=== PATIENT | female | born 1970 | race Caucasian/White ===

== ENCOUNTER 2016-10-10 14:02 | Emergency (ER) | payer OTHER ==
[2016-10-10 14:11] VITALS: TEMP 98.5
[2016-10-10] MEDS ORDERED: SODIUM CHLORIDE 0.9% 1,000 ML IV ONE (14:32)
[2016-10-10 14:33] LABS: Glucose,Whole Blood 291 mg/dL (75-99)
--- NOTE | 2016-10-10 14:44 | ED ---
General Adult HPI - General Chief complaint: Recheck/Abnormal Lab/Rx Stated complaint: leg numbness/diabetic Time Seen by Provider: 10/10/16 14:20 Source: patient Mode of arrival: wheelchair Limitations: no limitations - History of Present Illness Initial comments: Patient is a 46-year-old female who presents with a chief complaint of leg swelling, and right medial leg numbness. She states that yesterday when she went to bed she was fine, and today when she woke up her legs were swollen, right greater than left and she has numbness over the anterior medial aspect of her lower right leg. Patient cannot identify any inciting factors. There is nothing aggravating or alleviating. Patient doesn't that her diabetes has been poorly controlled lately. She called her primary care's office today and was instructed to come to the emergency department. Patient denies any trauma to the legs, long car rides, use of estrogens, previously diagnosed DVTs. Onset/Timin -: days(s) Location: right, lower extremity Radiation: non-radiation Quality: burning, other (Tingling) Consistency: constant Improves with: none Worsens with: none Associated Symptoms: denies other symptoms Treatments Prior to Arrival: none - Related Data Home Medications Medication Instructions Recorded Confirmed Insulin Aspart [NovoLOG] 10 unit SQ AC-TID 10/10/16 10/10/16 Insulin Glargine,Hum.rec.anlog 24 unit SQ BID 10/10/16 10/10/16 [Lantus Solostar] Lisinopril [Zestril] 10 mg PO DAILY 10/10/16 10/10/16 Metoprolol Succinate [Toprol XL] 50 mg PO HS 10/10/16 10/10/16 Previous Rx's Medication Instructions Recorded Apixaban [Eliquis] 5 mg PO DAILY #30 tablet 10/10/16 Allergies Allergy/AdvReac Type Severity Reaction Status Date / Time ciprofloxacin [From Cipro] Allergy Rash/Hives Verified 10/10/16 15:04 Iodine and Iodide Containing Allergy Rash/Hives Verified 10/10/16 15:04 Produc morphine Allergy Rash/Hives Verified 10/10/16 15:04 Penicillins Allergy Rash/Hives Verified 10/10/16 15:04 Review of Systems ROS Statement: Those systems with pertinent positive or pertinent negative responses have been documented in the HPI. Patient denies headache, visual changes, lightheadedness, dizziness, shortness of breath, chest pain, vomiting, dysuria, constipation, diarrhea. She admits to mild nausea, and numbness of the right leg. ROS Other: All systems not noted in ROS Statement are negative. Past Medical History Past Medical History: Diabetes Mellitus Additional Past Medical History / Comment(s): OCD History of Any Multi-Drug Resistant Organisms: None Reported Past Surgical History: Hysterectomy Past Psychological History: Anxiety Smoking Status: Current every day smoker Past Alcohol Use History: Occasional Past Drug Use History: None Reported General Exam Limitations: no limitations General appearance: alert, in no apparent distress Head exam: Present: atraumatic, normocephalic Eye exam: Present: normal appearance, PERRL ENT exam: Present: normal oropharynx Neck exam: Present: normal inspection Respiratory exam: Present: normal lung sounds bilaterally Cardiovascular Exam: Present: regular rate, normal rhythm GI/Abdominal exam: Present: soft Extremities exam: Present: normal inspection, calf tenderness (Right), other ( Examination of the lower extremities shows that the right leg is mildly more swollen than the left however there is no overt edema. Legs are nonpitting. Patient describes decreased sensation over the anterior medial aspect of her right leg. Motor, sensation, and 2 point discrimination is intact) Back exam: Present: normal inspection Neurological exam: Present: alert, oriented X3 Psychiatric exam: Present: normal affect, normal mood Skin exam: Present: warm, dry, intact Course Vital Signs 10/10/16 14:06 Temperature 98.5 F Pulse Rate 103 H Respiratory 17 Rate Blood Pressure 146/97 O2 Sat by Pulse 98 Oximetry Medical Decision Making - Medical Decision Making Patient presents with a chief complaint of lower extremity edema, decreased sensation of the right leg. She was instructed by her primary care's office to come to the emergency department to rule out DVT. Patient states that her blood sugar has been high recently as she has not been checking it often. Patient does have a history of neuropathy, she takes gabapentin 3 times a day. Blood sugar is 291, patient appears to be in no distress. We'll send patient for lower extremity ultrasound to rule out DVT. We'll check basic labs and a urine. 3:58 PM Ultrasound of the right lower extremity reveals a positive finding of an acute DVT in the right proximal calf vein. Patient will be started on anticoagulation here in the emergency department. Currently I have a page out to the patient's primary care physician to arrange follow-up, and plan for treatment. 4:21 PM I spoke with Dr. Fairbanks who states that the patient is safe for initiating Eiquis. The patient was started on 5 mg daily. She'll be given her first dose in the emergency department. I arranged that the patient will follow-up tomorrow at 2:15 PM at her primary care office. Patient remained stable in the emergency department. Vital signs are within normal limits, patient has nonlabored breathing. She understands, and is agreeable with care plan. Patient is safe for discharge. - Lab Data Result diagrams: 10/10/16 14:52 10/10/16 14:52 Lab Results 10/10/16 10/10/16 10/10/16 Range/Units 14:28 14:52 14:52 WBC 10.9 H (3.8-10.6) k/uL RBC 4.95 (3.80-5.40) m/uL Hgb 14.8 (11.4-16.0) gm/dL Hct 45.3 (34.0-46.0) % MCV 91.4 (80.0-100.0) fL MCH 29.9 (25.0-35.0) pg MCHC 32.7 (31.0-37.0) g/dL RDW 13.9 (11.5-15.5) % Plt Count 281 (150-450) k/uL Neutrophils % 60 % Lymphocytes % 33 % Monocytes % 3 % Eosinophils % 2 % Basophils % 1 % Neutrophils # 6.5 (1.3-7.7) k/uL Lymphocytes # 3.6 (1.0-4.8) k/uL Monocytes # 0.4 (0-1.0) k/uL Eosinophils # 0.2 (0-0.7) k/uL Basophils # 0.1 (0-0.2) k/uL Sodium 134 L (137-145) mmol/L Potassium 3.9 (3.5-5.1) mmol/L Chloride 101 (98-107) mmol/L Carbon Dioxide 26 (22-30) mmol/L Anion Gap 7 mmol/L BUN 12 (7-17) mg/dL Creatinine 0.57 (0.52-1.04) mg/dL Est GFR (MDRD) Af Amer >60 (>60 ml/min/1.73 sqM) Est GFR (MDRD) Non-Af >60 (>60 ml/min/1.73 sqM) Glucose 305 H (74-99) mg/dL POC Glucose (mg/dL) 291 H (75-99) mg/dL POC Glu Oil [employer]er Repairer ID [place] [employer] Calcium 9.2 (8.4-10.2) mg/dL Urine Color Urine Appearance (Clear) Urine pH (5.0-8.0) Ur Specific [place] (1.001-1.035) Urine Protein (Negative) Urine Glucose (UA) (Negative) Urine Ketones (Negative) Urine Blood (Negative) Urine Nitrite (Negative) Urine Bilirubin (Negative) Urine Urobilinogen (<2.0) mg/dL Ur Leukocyte Esterase (Negative) Urine RBC (0-5) /hpf Urine WBC (0-5) /hpf Ur Squamous Epith Cells (0-4) /hpf Urine Bacteria (None) /hpf 10/10/16 Range/Units 14:53 WBC (3.8-10.6) k/uL RBC (3.80-5.40) m/uL Hgb (11.4-16.0) gm/dL Hct (34.0-46.0) % MCV (80.0-100.0) fL MCH (25.0-35.0) pg MCHC (31.0-37.0) g/dL RDW (11.5-15.5) % Plt Count (150-450) k/uL Neutrophils % % Lymphocytes % % Monocytes % % Eosinophils % % Basophils % % Neutrophils # (1.3-7.7) k/uL Lymphocytes # (1.0-4.8) k/uL Monocytes # (0-1.0) k/uL Eosinophils # (0-0.7) k/uL Basophils # (0-0.2) k/uL Sodium (137-145) mmol/L Potassium (3.5-5.1) mmol/L Chloride (98-107) mmol/L Carbon Dioxide (22-30) mmol/L Anion Gap mmol/L BUN (7-17) mg/dL Creatinine (0.52-1.04) mg/dL Est GFR (MDRD) Af Amer (>60 ml/min/1.73 sqM) Est GFR (MDRD) Non-Af (>60 ml/min/1.73 sqM) Glucose (74-99) mg/dL POC Glucose (mg/dL) (75-99) mg/dL POC Glu Oil Burner Repairer ID Calcium (8.4-10.2) mg/dL Urine Color Light Yellow Urine Appearance Clear (Clear) Urine pH 5.5 (5.0-8.0) Ur Specific [place] 1.001 (1.001-1.035) Urine Protein Negative (Negative) Urine Glucose (UA) 3+ H (Negative) Urine Ketones Negative (Negative) Urine Blood Negative (Negative) Urine Nitrite Negative (Negative) Urine Bilirubin Negative (Negative) Urine Urobilinogen <2.0 (<2.0) mg/dL Ur Leukocyte Esterase Trace H (Negative) Urine RBC 1 (0-5) /hpf Urine WBC 4 (0-5) /hpf Ur Squamous Epith Cells 7 H (0-4) /hpf Urine Bacteria Rare H (None) /hpf Disposition Clinical Impression: Acute DVT (deep venous thrombosis) Disposition: HOME SELF-CARE Condition: Good Instructions: Deep Venous Thrombosis (ED) Additional Instructions: Follow-up with Dr. Fairbanks tomorrow at 2:15 PM Prescriptions: Apixaban [Eliquis] 5 mg PO DAILY #30 tablet Referrals: Brian De Souza DO [Primary Care Provider] - 1-2 days
[2016-10-10 15:09] LABS: Basophils # (A) 0.1 k/uL (0-0.2); Basophils % (A) 1 %; CH 30.6; CHCM 33.6; Eosinophils # (A) 0.2 k/uL (0-0.7); Eosinophils % (A) 2 %; HCT 45.3 % (34.0-46.0); HDW 2.24; HGB 14.8 gm/dL (11.4-16.0); Luc # (Auto) 0.14; Luc % (Auto) 1; Lymphocytes # (A) 3.6 k/uL (1.0-4.8); Lymphocytes % (A) 33 %; MCH 29.9 pg (25.0-35.0); MCHC 32.7 g/dL (31.0-37.0); MCV 91.4 fL (80.0-100.0); Mean Platelet Volume 7.7; Monocytes # (A) 0.4 k/uL (0-1.0); Monocytes % (A) 3 %; Neutrophils # (A) 6.5 k/uL (1.3-7.7); Neutrophils % (A) 60 %; RBC 4.95 m/uL (3.80-5.40); RDW 13.9 % (11.5-15.5); WBC 10.9 k/uL (3.8-10.6); WBC (Perox) 10.72
[2016-10-10 15:17] LABS: Anion Gap 7 mmol/L; Blood Urea Nitrogen 12 mg/dL (7-17); Calcium 9.2 mg/dL (8.4-10.2); Carbon Dioxide 26 mmol/L (22-30); Chloride 101 mmol/L (98-107); Glucose 305 mg/dL (74-99); Non-African American GFR(MDRD) >60 (>60 ml/min/1.73 sqM); Potassium 3.9 mmol/L (3.5-5.1); Sodium 134 mmol/L (137-145)
[2016-10-10 15:30] LABS: Appearance,Urine Clear (Clear); Bacteria,Urine Rare /hpf; Bilirubin,Urine Negative (Negative); Glucose,Urine (UA) 3+ (Negative); Ketones,Urine Negative (Negative); Leukocyte Esterase,Urine Trace (Negative); Nitrite,Urine Negative (Negative); PH, Urine 5.5 (5.0-8.0); Particle Count 1196; Protein,Urine Negative (Negative); RBC,Urine 1 /hpf (0-5); Specific Gravity,Urine 1.001 (1.001-1.035); Squamous Epithelial Cell,Urine 7 /hpf (0-4); UA Billing (MACRO vs. MICRO) MICRO; Urobilinogen,Urine <2.0 mg/dL (<2.0); WBC,Urine 4 /hpf (0-5)
--- NOTE | 2016-10-10 15:39 | US ---
EXAMINATION TYPE: US venous doppler duplex LE RT DATE OF EXAM: 10/10/2016 2:33 PM COMPARISON: NONE CLINICAL HISTORY: Pain. Edema right leg, numbness right lower leg SIDE PERFORMED: Right TECHNIQUE: The lower extremity deep venous system is examined utilizing real time linear array sonog killian with graded compression, doppler sonography and color-flow sonography. VESSELS IMAGED: External Iliac Vein (EIV) Common Femoral Vein Deep Femoral Vein Greater Saphenous Vein * Femoral Vein Popliteal Vein Small Saphenous Vein * Proximal Calf Veins (* superficial vessels) Right Leg: ++Positive for DVT right proximal calf vein IMPRESSION: 1. Findings are compatible with acute DVT right proximal calf veins.
[2016-10-10 16:38] VITALS: BP 148/93; PULSE 88; RESP 18
[2016-10-10] MEDS ORDERED: APIXABAN 5 MG TAB PO ONE (17:15)
== END 2016-10-10 18:03 | disposition home or self-care (01) ==
LOC: EC 14:02
DX: I82.401 Acute embolism and thrombosis of unspecified deep veins of right lower extremity (principal); E11.9 Type 2 diabetes mellitus without complications; F42.9 Obsessive-compulsive disorder, unspecified; F17.200 Nicotine dependence, unspecified, uncomplicated; Z79.4 Long term (current) use of insulin; Z79.899 Other long term (current) drug therapy; Z88.0 Allergy status to penicillin; Z88.1 Allergy status to other antibiotic agents; Z88.5 Allergy status to narcotic agent; Z88.8 Allergy status to other drugs, medicaments and biological substances
CPT/HCPCS: 36415; 80048; 81001; 85025; 96360; 96361; 99284

== ENCOUNTER 2016-10-31 15:28 | Emergency (ER) | payer OTHER ==
[2016-10-31] MEDS ORDERED: SODIUM CHLORIDE 0.9% 1,000 ML IV STA ×2 (16:02)
[2016-10-31] MEDS ORDERED: ONDANSETRON 4 MG/2 ML VIAL IVP STA (16:02)
--- NOTE | 2016-10-31 16:10 | ED ---
General Adult HPI - General Chief complaint: Nausea/Vomiting/Diarrhea Stated complaint: Hyperglycemia Time Seen by Provider: 10/31/16 15:46 Source: patient, RN notes reviewed, old records reviewed Mode of arrival: ambulatory Limitations: no limitations - History of Present Illness Initial comments: This is a 46-year-old female here for evaluation. Patient states coming in with a. Blood sugars were out of control. Nausea and mild vomiting weakness and dehydration. Sugars have been running elevated for about a day and a half. Patient denies any fevers or chest pain or shortness of breath no abdominal pain. Patient has no other complaints source travel history no sick contacts - Related Data Home Medications Medication Instructions Recorded Confirmed Insulin Aspart [NovoLOG] 10 unit SQ TID-W/MEALS 10/10/16 10/31/16 Insulin Glargine,Hum.rec.anlog 20 unit SQ BID 10/10/16 10/31/16 [Lantus Solostar] Metoprolol Succinate [Toprol XL] 50 mg PO HS 10/10/16 10/31/16 Apixaban [Eliquis] 5 mg PO QAM 10/31/16 10/31/16 Ibuprofen [Motrin] 400 mg PO TID PRN 10/31/16 10/31/16 Losartan [Cozaar] 50 mg PO QAM 10/31/16 10/31/16 Allergies Allergy/AdvReac Type Severity Reaction Status Date / Time ciprofloxacin [From Cipro] Allergy Rash/Hives Verified 10/31/16 15:43 Iodine and Iodide Containing Allergy Rash/Hives Verified 10/31/16 15:43 Produc morphine Allergy Rash/Hives Verified 10/31/16 15:43 Penicillins Allergy Rash/Hives Verified 10/31/16 15:43 Review of Systems ROS Statement: Those systems with pertinent positive or pertinent negative responses have been documented in the HPI. ROS Other: All systems not noted in ROS Statement are negative. Past Medical History Past Medical History: Diabetes Mellitus Additional Past Medical History / Comment(s): OCD History of Any Multi-Drug Resistant Organisms: None Reported Past Surgical History: Hysterectomy Past Psychological History: Anxiety Smoking Status: Current every day smoker Past Alcohol Use History: Occasional Past Drug Use History: None Reported General Exam Limitations: no limitations General appearance: alert, in no apparent distress Head exam: Present: atraumatic, normocephalic, normal inspection Eye exam: Present: normal appearance, PERRL, EOMI. Absent: scleral icterus, conjunctival injection, periorbital swelling ENT exam: Present: normal exam, mucous membranes moist Neck exam: Present: normal inspection. Absent: tenderness, meningismus, lymphadenopathy Respiratory exam: Present: normal lung sounds bilaterally. Absent: respiratory distress, wheezes, rales, rhonchi, stridor Cardiovascular Exam: Present: regular rate, normal rhythm, normal heart sounds. Absent: systolic murmur, diastolic murmur, rubs, gallop, clicks GI/Abdominal exam: Present: soft, normal bowel sounds. Absent: distended, tenderness, guarding, rebound, rigid Extremities exam: Present: normal inspection, full ROM, normal capillary refill. Absent: tenderness, pedal edema, joint swelling, calf tenderness Back exam: Present: normal inspection Neurological exam: Present: alert, oriented X3, CN II-XII intact Psychiatric exam: Present: normal affect, normal mood Skin exam: Present: warm, dry, intact, normal color. Absent: rash Course Vital Signs 10/31/16 15:41 Temperature 98.6 F Pulse Rate 87 Respiratory 20 Rate Blood Pressure 143/93 O2 Sat by Pulse 98 Oximetry - Reevaluation(s) Reevaluation #1: 10/31/16 17:16 Patient feels better with simple control and hydration at this time EKG Findings - EKG Comments: EKG Findings:: EKG shows normal sinus rhythm rate of 72, [place] 126, QRS 84, QTc 413 Medical Decision Making - Medical Decision Making 46 female here for evaluation. Patient is today for evaluation regarding weakness dizziness not feeling well. Patient's blood sugars wanted control at this time without is normal EKG negative patient will be discharged home - Lab Data Result diagrams: 10/31/16 16:10 10/31/16 16:10 Lab Results 10/31/16 10/31/16 10/31/16 Range/Units 16:05 16:10 16:10 WBC (3.8-10.6) k/uL RBC (3.80-5.40) m/uL Hgb (11.4-16.0) gm/dL Hct (34.0-46.0) % MCV (80.0-100.0) fL MCH (25.0-35.0) pg MCHC (31.0-37.0) g/dL RDW (11.5-15.5) % Plt Count (150-450) k/uL Neutrophils % % Lymphocytes % % Monocytes % % Eosinophils % % Basophils % % Neutrophils # (1.3-7.7) k/uL Lymphocytes # (1.0-4.8) k/uL Monocytes # (0-1.0) k/uL Eosinophils # (0-0.7) k/uL Basophils # (0-0.2) k/uL VBG pH 7.43 H (7.31-7.41) VBG pCO2 37 (37-51) mmHg VBG HCO3 24 (24-28) mmol/L Sodium 133 L (137-145) mmol/L Potassium 4.4 (3.5-5.1) mmol/L Chloride 100 (98-107) mmol/L Carbon Dioxide 23 (22-30) mmol/L Anion Gap 10 mmol/L BUN 16 (7-17) mg/dL Creatinine 0.60 (0.52-1.04) mg/dL Est GFR (MDRD) Af Amer >60 (>60 ml/min/1.73 sqM) Est GFR (MDRD) Non-Af >60 (>60 ml/min/1.73 sqM) Glucose 412 H (74-99) mg/dL POC Glucose (mg/dL) 377 H (75-99) mg/dL POC Glu Gambling Monitor ID [place] Calcium 9.5 (8.4-10.2) mg/dL Phosphorus 4.1 (2.5-4.5) mg/dL Magnesium 1.6 (1.6-2.3) mg/dL Total Bilirubin 0.3 (0.2-1.3) mg/dL AST 16 (14-36) U/L ALT 27 (9-52) U/L Alkaline Phosphatase 92 (38-126) U/L Total Protein 7.0 (6.3-8.2) g/dL Albumin 3.9 (3.5-5.0) g/dL Urine Color Urine Appearance (Clear) Urine pH (5.0-8.0) Ur Specific [place] (1.001-1.035) Urine Protein (Negative) Urine Glucose (UA) (Negative) Urine Ketones (Negative) Urine Blood (Negative) Urine Nitrite (Negative) Urine Bilirubin (Negative) Urine Urobilinogen (<2.0) mg/dL Ur Leukocyte Esterase (Negative) Urine RBC (0-5) /hpf Urine WBC (0-5) /hpf Ur Squamous Epith Cells (0-4) /hpf Urine Bacteria (None) /hpf 10/31/16 10/31/16 Range/Units 16:10 16:10 WBC 13.0 H (3.8-10.6) k/uL RBC 5.29 (3.80-5.40) m/uL Hgb 16.0 (11.4-16.0) gm/dL Hct 47.6 H (34.0-46.0) % MCV 90.1 (80.0-100.0) fL MCH 30.2 (25.0-35.0) pg MCHC 33.6 (31.0-37.0) g/dL RDW 13.0 (11.5-15.5) % Plt Count 226 (150-450) k/uL Neutrophils % 63 % Lymphocytes % 30 % Monocytes % 3 % Eosinophils % 2 % Basophils % 1 % Neutrophils # 8.2 H (1.3-7.7) k/uL Lymphocytes # 3.9 (1.0-4.8) k/uL Monocytes # 0.4 (0-1.0) k/uL Eosinophils # 0.3 (0-0.7) k/uL Basophils # 0.1 (0-0.2) k/uL VBG pH (7.31-7.41) VBG pCO2 (37-51) mmHg VBG HCO3 (24-28) mmol/L Sodium (137-145) mmol/L Potassium (3.5-5.1) mmol/L Chloride (98-107) mmol/L Carbon Dioxide (22-30) mmol/L Anion Gap mmol/L BUN (7-17) mg/dL Creatinine (0.52-1.04) mg/dL Est GFR (MDRD) Af Amer (>60 ml/min/1.73 sqM) Est GFR (MDRD) Non-Af (>60 ml/min/1.73 sqM) Glucose (74-99) mg/dL POC Glucose (mg/dL) (75-99) mg/dL POC Glu Gambling Monitor ID Calcium (8.4-10.2) mg/dL Phosphorus (2.5-4.5) mg/dL Magnesium (1.6-2.3) mg/dL Total Bilirubin (0.2-1.3) mg/dL AST (14-36) U/L ALT (9-52) U/L Alkaline Phosphatase (38-126) U/L Total Protein (6.3-8.2) g/dL Albumin (3.5-5.0) g/dL Urine Color Light Yellow Urine Appearance Clear (Clear) Urine pH 5.5 (5.0-8.0) Ur Specific [place] 1.020 (1.001-1.035) Urine Protein Negative (Negative) Urine Glucose (UA) 4+ H (Negative) Urine Ketones 1+ H (Negative) Urine Blood Trace H (Negative) Urine Nitrite Negative (Negative) Urine Bilirubin Negative (Negative) Urine Urobilinogen <2.0 (<2.0) mg/dL Ur Leukocyte Esterase Negative (Negative) Urine RBC 1 (0-5) /hpf Urine WBC 13 H (0-5) /hpf Ur Squamous Epith Cells 3 (0-4) /hpf Urine Bacteria Occasional H (None) /hpf Disposition Clinical Impression: Dehydration, Nausea and vomiting Disposition: HOME SELF-CARE Condition: Good Instructions: Acute Nausea and Vomiting (ED) Referrals: Brian De Souza DO [Primary Care Provider] - 1-2 days
[2016-10-31 16:11] LABS: Glucose,Whole Blood 377 mg/dL (75-99)
[2016-10-31 16:31] LABS: Basophils # (A) 0.1 k/uL (0-0.2); Basophils % (A) 1 %; CH 29.7; CHCM 33.1; Eosinophils # (A) 0.3 k/uL (0-0.7); Eosinophils % (A) 2 %; HCT 47.6 % (34.0-46.0); HDW 2.23; Luc % (Auto) 2; Lymphocytes # (A) 3.9 k/uL (1.0-4.8); Lymphocytes % (A) 30 %; MCH 30.2 pg (25.0-35.0); MCHC 33.6 g/dL (31.0-37.0); MCV 90.1 fL (80.0-100.0); Mean Platelet Volume 7.2; Monocytes # (A) 0.4 k/uL (0-1.0); Monocytes % (A) 3 %; Neutrophils # (A) 8.2 k/uL (1.3-7.7); Neutrophils % (A) 63 %; RBC 5.29 m/uL (3.80-5.40); WBC (Perox) 12.25
[2016-10-31 16:36] LABS: Appearance,Urine Clear (Clear); Bacteria,Urine Occasional /hpf; Bilirubin,Urine Negative (Negative); Glucose,Urine (UA) 4+ (Negative); Ketones,Urine 1+ (Negative); Leukocyte Esterase,Urine Negative (Negative); Nitrite,Urine Negative (Negative); PH, Urine 5.5 (5.0-8.0); Particle Count 917; Protein,Urine Negative (Negative); RBC,Urine 1 /hpf (0-5); Squamous Epithelial Cell,Urine 3 /hpf (0-4); UA Billing (MACRO vs. MICRO) MICRO; Urobilinogen,Urine <2.0 mg/dL (<2.0); WBC,Urine 13 /hpf (0-5)
[2016-10-31 16:39] LABS: ALT 27 U/L (9-52); AST 16 U/L (14-36); Alkaline Phosphatase 92 U/L (38-126); Anion Gap 10 mmol/L; Blood Urea Nitrogen 16 mg/dL (7-17); Calcium 9.5 mg/dL (8.4-10.2); Carbon Dioxide 23 mmol/L (22-30); Chloride 100 mmol/L (98-107); Glucose 412 mg/dL (74-99); Non-African American GFR(MDRD) >60 (>60 ml/min/1.73 sqM); Phosphorous 4.1 mg/dL (2.5-4.5); Potassium 4.4 mmol/L (3.5-5.1); Sodium 133 mmol/L (137-145); Total Bilirubin 0.3 mg/dL (0.2-1.3)
[2016-10-31 16:49] LABS: Magnesium 1.6 mg/dL (1.6-2.3)
[2016-10-31 16:54] LABS: VBG PH 7.43 (7.31-7.41)
[2016-10-31 17:31] LABS: Hemoglobin A1C 11.7 % (4.2-6.1)
[2016-10-31 17:37] VITALS: BP 113/57; PULSE 77; RESP 16; TEMP 97.3
[2016-10-31 17:37] LABS: Glucose,Whole Blood 344 mg/dL (75-99)
== END 2016-10-31 17:37 | disposition home or self-care (01) ==
LOC: EC 15:28
DX: E86.0 Dehydration (principal); R11.2 Nausea with vomiting, unspecified; E11.65 Type 2 diabetes mellitus with hyperglycemia; F17.200 Nicotine dependence, unspecified, uncomplicated; Z79.4 Long term (current) use of insulin; Z79.01 Long term (current) use of anticoagulants; Z79.899 Other long term (current) drug therapy; Z88.0 Allergy status to penicillin; Z88.1 Allergy status to other antibiotic agents; Z88.5 Allergy status to narcotic agent; Z91.041 Radiographic dye allergy status
CPT/HCPCS: 36415; 93005; 80053; 83036; 82803; 82009; 83735; 84100; 85025; 81001; 87086; 87077; 87186; 99285; 96374; 96361; J2405

== ENCOUNTER 2021-12-26 03:28 | Emergency (ER) | payer OTHER ==
[2021-12-26 03:44] VITALS: BP 141/86; PULSE 95; RESP 18; TEMP 98
[2021-12-26] MEDS ORDERED: SODIUM CHLORIDE 0.9% 1,000 ML IV STA (04:53)
[2021-12-26 05:50] LABS: HCT 42.3 % (34.0-46.0); HGB 13.6 gm/dL (11.4-16.0); MCH 29.7 pg (25.0-35.0); MCHC 32.2 g/dL (31.0-37.0); MCV 92.1 fL (80.0-100.0); Mean Platelet Volume 8.6; Platelet Count 313 k/uL (150-450); RDW 12.8 % (11.5-15.5); WBC 12.6 k/uL (3.8-10.6)
--- NOTE | 2021-12-26 05:53 | ED ---
General Adult HPI - General Chief complaint: Recheck/Abnormal Lab/Rx Stated complaint: Low Sodium Time Seen by Provider: 12/26/21 04:35 Source: patient Mode of arrival: ambulatory Limitations: no limitations - History of Present Illness Initial comments: 51-year-old female with past history of diabetes who presents to emergency department for fevers and uncontrolled blood sugars. Patient reports that she has been sick for the past 10 days with body aches, fevers, fatigue. This has caused her blood sugars she become uncontrolled. She followed up with her primary care doctor and had Covid and influenza testing performed which was negative. Her primary care completed laboratory studies. Her glucose was in the 500s and her sodium was reported as low and therefore they recommended that she come to the emergency department for treatment. Patient states that she received this call yesterday however was unable to come into the emergency department until today. She continues to take her medications as directed. Denies any missed doses of insulin. No chest pain, shortness of breath. No abdominal pain. No changes in her bowel or bladder habits. Reports that her last fever was on Friday. No other alleviating, precipitating monitoring factors - Related Data Home Medications Medication Instructions Recorded Confirmed INSULIN ASPART (NovoLOG) [NovoLOG] 10 unit SQ TID-W/MEALS 10/10/16 10/31/16 Insulin Glargine,Hum.rec.anlog 20 unit SQ BID 10/10/16 10/31/16 [Lantus Solostar] Metoprolol Succinate [Toprol XL] 50 mg PO HS 10/10/16 10/31/16 Apixaban [Eliquis] 5 mg PO QAM 10/31/16 10/31/16 Ibuprofen [Motrin] 400 mg PO TID PRN 10/31/16 10/31/16 Losartan [Cozaar] 50 mg PO QAM 10/31/16 10/31/16 Previous Rx's Medication Instructions Recorded Ondansetron [Zofran] 4 mg PO Q8HR PRN #30 tab 10/31/16 Cephalexin [Keflex] 500 mg PO BID 1 Days #14 cap 12/26/21 Allergies Allergy/AdvReac Type Severity Reaction Status Date / Time ciprofloxacin [From Cipro] Allergy Rash/Hives Verified 12/26/21 03:32 Iodine and Iodide Containing Allergy Rash/Hives Verified 12/26/21 03:32 Produc morphine Allergy Rash/Hives Verified 12/26/21 03:32 Penicillins Allergy Rash/Hives Verified 12/26/21 03:32 Review of Systems ROS Statement: Those systems with pertinent positive or pertinent negative responses have been documented in the HPI. ROS Other: All systems not noted in ROS Statement are negative. Past Medical History Past Medical History: Diabetes Mellitus Additional Past Medical History / Comment(s): OCD, hyponateremia 2020 History of Any Multi-Drug Resistant Organisms: None Reported Past Surgical History: Hysterectomy, Tonsillectomy Additional Past Surgical History / Comment(s): B salivary gland removal, R knee Past Psychological History: ADD/ADHD Smoking Status: Former smoker Past Alcohol Use History: Occasional Past Drug Use History: None Reported General Exam Limitations: no limitations General appearance: alert, in no apparent distress Head exam: Present: atraumatic, normocephalic, normal inspection Eye exam: Present: normal appearance, PERRL, EOMI. Absent: scleral icterus, conjunctival injection, periorbital swelling ENT exam: Present: normal exam, mucous membranes moist Neck exam: Present: normal inspection. Absent: tenderness, meningismus, lymphadenopathy Respiratory exam: Present: normal lung sounds bilaterally. Absent: respiratory distress, wheezes, rales, rhonchi, stridor Cardiovascular Exam: Present: regular rate, normal rhythm, normal heart sounds. Absent: systolic murmur, diastolic murmur, rubs, gallop, clicks GI/Abdominal exam: Present: soft, normal bowel sounds. Absent: distended, tenderness, guarding, rebound, rigid Extremities exam: Present: normal inspection, full ROM, normal capillary refill. Absent: tenderness, pedal edema, joint swelling, calf tenderness Back exam: Present: normal inspection Neurological exam: Present: alert, oriented X3, CN II-XII intact Psychiatric exam: Present: normal affect, normal mood Skin exam: Present: warm, dry, intact, normal color. Absent: rash Course Vital Signs 12/26/21 03:33 Temperature 98 F Pulse Rate 95 Respiratory 18 Rate Blood Pressure 141/86 O2 Sat by Pulse 100 Oximetry EKG Findings - EKG Comments: EKG Findings:: EKG demonstrates sinus rhythm with a rate of 70. TX interval 148. QRS 98. QTC of 420. Some J-point elevation in all leads. No reciprocal changes Medical Decision Making - Medical Decision Making Upon arrival patient was placed into room 2. History and physical exam was performed. IV access was established. Laboratory studies were conducted. Glucose is 319. Urinalysis demonstrates many bacteria. She given a dose of Rocephin. Glucose rechecked after a liter bolus and is down to 217. Patient will be discharged home on antibiotics. Instructed to follow up with primary care to have reevaluation of urinalysis after antibiotics are finished. Continue to watch her sugars closely and just oozing her sliding scale. Return for any new or worsening symptoms. Patient was agreeable to this plan and discharged home in stable condition - Lab Data Result diagrams: 12/26/21 05:10 12/26/21 05:10 Lab Results 12/26/21 12/26/21 12/26/21 Range/Units 05:10 05:10 05:10 WBC 12.6 H (3.8-10.6) k/uL RBC 4.60 (3.80-5.40) m/uL Hgb 13.6 (11.4-16.0) gm/dL Hct 42.3 (34.0-46.0) % MCV 92.1 (80.0-100.0) fL MCH 29.7 (25.0-35.0) pg MCHC 32.2 (31.0-37.0) g/dL RDW 12.8 (11.5-15.5) % Plt Count 313 (150-450) k/uL MPV 8.6 Neutrophils % (Manual) 50 % Band Neuts % (Manual) 9 % Lymphocytes % (Manual) 34 % Monocytes % (Manual) 5 % Eosinophils % (Manual) 2 % Neutrophils # (Manual) 7.40 (1.3-7.7) k/uL Lymphocytes # (Manual) 4.28 (1.0-4.8) k/uL Monocytes # (Manual) 0.63 (0-1.0) k/uL Eosinophils # (Manual) 0.25 (0-0.7) k/uL Nucleated RBCs 0 (0-0) /100 WBC Manual Slide Review Performed Large Platelets Present PT 10.6 (9.0-12.0) sec INR 1.0 (<1.2) APTT 22.3 (22.0-30.0) sec Sodium 131 L (137-145) mmol/L Potassium 4.3 (3.5-5.1) mmol/L Chloride 94 L (98-107) mmol/L Carbon Dioxide 24 (22-30) mmol/L Anion Gap 13 mmol/L BUN 28 H (7-17) mg/dL Creatinine 0.78 (0.52-1.04) mg/dL Est GFR (CKD-EPI)AfAm >90 (>60 ml/min/1.73 sqM) Est GFR (CKD-EPI)NonAf 89 (>60 ml/min/1.73 sqM) Glucose 319 H (74-99) mg/dL POC Glucose (mg/dL) (70-110) mg/dL POC Glu Records Tech ID Plasma Lactic Acid Wes (0.7-2.0) mmol/L Calcium 8.8 (8.4-10.2) mg/dL Magnesium 1.9 (1.6-2.3) mg/dL Total Bilirubin 0.5 (0.2-1.3) mg/dL AST 45 H (14-36) U/L ALT 62 H (4-34) U/L Alkaline Phosphatase 193 H (38-126) U/L Troponin I (0.000-0.034) ng/mL Total Protein 6.5 (6.3-8.2) g/dL Albumin 3.3 L (3.5-5.0) g/dL TSH 0.574 (0.465-4.680) mIU/L Urine Color Urine Appearance (Clear) Urine pH (5.0-8.0) Ur Specific Moro (1.001-1.035) Urine Protein (Negative) Urine Glucose (UA) (Negative) Urine Ketones (Negative) Urine Blood (Negative) Urine Nitrite (Negative) Urine Bilirubin (Negative) Urine Urobilinogen (<2.0) mg/dL Ur Leukocyte Esterase (Negative) Urine RBC (0-5) /hpf Urine WBC (0-5) /hpf Urine WBC Clumps (None) /hpf Ur Squamous Epith Cells (0-4) /hpf Urine Bacteria (None) /hpf Hyaline Casts (0-2) /lpf Urine Mucus (None) /hpf Acetone, Qual Negative (Negative) 12/26/21 12/26/21 12/26/21 Range/Units 05:10 05:10 05:52 WBC (3.8-10.6) k/uL RBC (3.80-5.40) m/uL Hgb (11.4-16.0) gm/dL Hct (34.0-46.0) % MCV (80.0-100.0) fL MCH (25.0-35.0) pg MCHC (31.0-37.0) g/dL RDW (11.5-15.5) % Plt Count (150-450) k/uL MPV Neutrophils % (Manual) % Band Neuts % (Manual) % Lymphocytes % (Manual) % Monocytes % (Manual) % Eosinophils % (Manual) % Neutrophils # (Manual) (1.3-7.7) k/uL Lymphocytes # (Manual) (1.0-4.8) k/uL Monocytes # (Manual) (0-1.0) k/uL Eosinophils # (Manual) (0-0.7) k/uL Nucleated RBCs (0-0) /100 WBC Manual Slide Review Large Platelets PT (9.0-12.0) sec INR (<1.2) APTT (22.0-30.0) sec Sodium (137-145) mmol/L Potassium (3.5-5.1) mmol/L Chloride (98-107) mmol/L Carbon Dioxide (22-30) mmol/L Anion Gap mmol/L BUN (7-17) mg/dL Creatinine (0.52-1.04) mg/dL Est GFR (CKD-EPI)AfAm (>60 ml/min/1.73 sqM) Est GFR (CKD-EPI)NonAf (>60 ml/min/1.73 sqM) Glucose (74-99) mg/dL POC Glucose (mg/dL) (70-110) mg/dL POC Glu Records Tech ID Plasma Lactic Acid Wes 1.6 (0.7-2.0) mmol/L Calcium (8.4-10.2) mg/dL Magnesium (1.6-2.3) mg/dL Total Bilirubin (0.2-1.3) mg/dL AST (14-36) U/L ALT (4-34) U/L Alkaline Phosphatase (38-126) U/L Troponin I <0.012 (0.000-0.034) ng/mL Total Protein (6.3-8.2) g/dL Albumin (3.5-5.0) g/dL TSH (0.465-4.680) mIU/L Urine Color Yellow Urine Appearance Cloudy H (Clear) Urine pH 5.5 (5.0-8.0) Ur Specific Moro 1.020 (1.001-1.035) Urine Protein 1+ H (Negative) Urine Glucose (UA) 4+ H (Negative) Urine Ketones Negative (Negative) Urine Blood Moderate H (Negative) Urine Nitrite Negative (Negative) Urine Bilirubin Negative (Negative) Urine Urobilinogen <2.0 (<2.0) mg/dL Ur Leukocyte Esterase Large H (Negative) Urine RBC 10 H (0-5) /hpf Urine WBC 140 H (0-5) /hpf Urine WBC Clumps Few H (None) /hpf Ur Squamous Epith Cells 15 H (0-4) /hpf Urine Bacteria Many H (None) /hpf Hyaline Casts 2 (0-2) /lpf Urine Mucus Rare H (None) /hpf Acetone, Qual (Negative) 12/26/21 Range/Units 07:02 WBC (3.8-10.6) k/uL RBC (3.80-5.40) m/uL Hgb (11.4-16.0) gm/dL Hct (34.0-46.0) % MCV (80.0-100.0) fL MCH (25.0-35.0) pg MCHC (31.0-37.0) g/dL RDW (11.5-15.5) % Plt Count (150-450) k/uL MPV Neutrophils % (Manual) % Band Neuts % (Manual) % Lymphocytes % (Manual) % Monocytes % (Manual) % Eosinophils % (Manual) % Neutrophils # (Manual) (1.3-7.7) k/uL Lymphocytes # (Manual) (1.0-4.8) k/uL Monocytes # (Manual) (0-1.0) k/uL Eosinophils # (Manual) (0-0.7) k/uL Nucleated RBCs (0-0) /100 WBC Manual Slide Review Large Platelets PT (9.0-12.0) sec INR (<1.2) APTT (22.0-30.0) sec Sodium (137-145) mmol/L Potassium (3.5-5.1) mmol/L Chloride (98-107) mmol/L Carbon Dioxide (22-30) mmol/L Anion Gap mmol/L BUN (7-17) mg/dL Creatinine (0.52-1.04) mg/dL Est GFR (CKD-EPI)AfAm (>60 ml/min/1.73 sqM) Est GFR (CKD-EPI)NonAf (>60 ml/min/1.73 sqM) Glucose (74-99) mg/dL POC Glucose (mg/dL) 217 H (70-110) mg/dL POC Glu Records Tech ID Eduarda Tran Plasma Lactic Acid Wes (0.7-2.0) mmol/L Calcium (8.4-10.2) mg/dL Magnesium (1.6-2.3) mg/dL Total Bilirubin (0.2-1.3) mg/dL AST (14-36) U/L ALT (4-34) U/L Alkaline Phosphatase (38-126) U/L Troponin I (0.000-0.034) ng/mL Total Protein (6.3-8.2) g/dL Albumin (3.5-5.0) g/dL TSH (0.465-4.680) mIU/L Urine Color Urine Appearance (Clear) Urine pH (5.0-8.0) Ur Specific Moro (1.001-1.035) Urine Protein (Negative) Urine Glucose (UA) (Negative) Urine Ketones (Negative) Urine Blood (Negative) Urine Nitrite (Negative) Urine Bilirubin (Negative) Urine Urobilinogen (<2.0) mg/dL Ur Leukocyte Esterase (Negative) Urine RBC (0-5) /hpf Urine WBC (0-5) /hpf Urine WBC Clumps (None) /hpf Ur Squamous Epith Cells (0-4) /hpf Urine Bacteria (None) /hpf Hyaline Casts (0-2) /lpf Urine Mucus (None) /hpf Acetone, Qual (Negative) Disposition Clinical Impression: Hyperglycemia, UTI (urinary tract infection) Disposition: HOME SELF-CARE Condition: Stable Instructions (If sedation given, give patient instructions): Urinary Tract Infection in Women (ED) Additional Instructions: Take the antibiotics as directed. Follow up with your primary care doctor in 2- 4 days and return for any new or worsening symptoms. They should repeat a urine specimen when antibiotics are finished to ensure clearance of infection Prescriptions: Cephalexin [Keflex] 500 mg PO BID 1 Days #14 cap Is patient prescribed a controlled substance at d/c from ED?: No Referrals: Brian De Souza DO [Primary Care Provider] - 1-2 days Time of Disposition: 07:06
[2021-12-26 05:59] LABS: ALT 62 U/L (4-34); AST 45 U/L (14-36); African American GFR (CKD) >90 (>60 ml/min/1.73 sqM); Albumin 3.3 g/dL (3.5-5.0); Alkaline Phosphatase 193 U/L (38-126); Anion Gap 13 mmol/L; Blood Urea Nitrogen 28 mg/dL (7-17); Calcium 8.8 mg/dL (8.4-10.2); Carbon Dioxide 24 mmol/L (22-30); Chloride 94 mmol/L (98-107); Glucose 319 mg/dL (74-99); Magnesium 1.9 mg/dL (1.6-2.3); Non-African American GFR(CKD) 89 (>60 ml/min/1.73 sqM); Potassium 4.3 mmol/L (3.5-5.1); Sodium 131 mmol/L (137-145); Total Bilirubin 0.5 mg/dL (0.2-1.3); Total Protein 6.5 g/dL (6.3-8.2)
[2021-12-26 06:01] LABS: Partial Thromboplastin Time 22.3 sec (22.0-30.0); Prothrombin Time 10.6 sec (9.0-12.0)
[2021-12-26 06:27] LABS: Appearance,Urine Cloudy (Clear); Bacteria,Urine Many /hpf; Bilirubin,Urine Negative (Negative); Blood,Urine Moderate (Negative); Color,Urine Yellow; Glucose,Urine (UA) 4+ (Negative); Hyaline Casts,Urine 2 /lpf (0-2); Ketones,Urine Negative (Negative); Leukocyte Esterase,Urine Large (Negative); Mucus,Urine Rare /hpf; Nitrite,Urine Negative (Negative); PH, Urine 5.5 (5.0-8.0); Protein,Urine 1+ (Negative); RBC,Urine 10 /hpf (0-5); Squamous Epithelial Cell,Urine 15 /hpf (0-4); Urobilinogen,Urine <2.0 mg/dL (<2.0); WBC,Urine 140 /hpf (0-5)
[2021-12-26 06:47] LABS: Band Neutrophils % 9 %; Eosinophils # (M) 0.25 k/uL (0-0.7); Lymphocytes # (M) 4.28 k/uL (1.0-4.8); Monocytes # (M) 0.63 k/uL (0-1.0); Neutrophils % (M) 50 %; Nucleated Red Blood Cells 0 /100 WBC (0-0); Total Cells Counted 100
[2021-12-26 06:51] LABS: Large Platelets Present
[2021-12-26] MEDS ORDERED: cefTRIAXone IN SWFI 1,000 MG/10 ML SYRINGE IVP STA (07:02)
[2021-12-26 07:04] LABS: Glucose,Whole Blood 217 mg/dL (70-110)
== END 2021-12-26 07:22 | disposition home or self-care (01) ==
LOC: EC 03:28
DX: E11.65 Type 2 diabetes mellitus with hyperglycemia (principal); N39.0 Urinary tract infection, site not specified; Z87.891 Personal history of nicotine dependence; Z88.1 Allergy status to other antibiotic agents; Z88.0 Allergy status to penicillin; Z91.041 Radiographic dye allergy status; Z79.4 Long term (current) use of insulin; Z79.899 Other long term (current) drug therapy
CPT/HCPCS: 36415; 93005; 80053; 84443; 82009; 83605; 83735; 84484; 85025; 85610; 85730; 81001; 87086; 87077; 87186; 99283; 96374; 96361 ×2; J0696